=== PATIENT | male | born 1935 | race Caucasian/White ===

== ENCOUNTER 2019-12-17 19:08 | Emergency (ER) | payer MEDICARE, OTHER ==
[~2019-12-17] VITALS: Ht 177.8 cm; Wt 79.5 kg
[2019-12-17 19:15] VITALS: Ht 177.8 cm; Wt 79.5 kg
[2019-12-17 20:05] LABS: HEMATOCRIT 51.8 % (42.0-54.0); HEMOGLOBIN 17.1 g/dL (13.5-17.5); LYMPHOCYTES 20.5 % (15-50); MCH 29.9 pg (26.0-34.0); MCV 90.7 fL (80.0-100.0); MEAN PLATELET VOLUME 9.1 fL (7.4-10.4); NEUTROPHILS 71.4 % (40-80); PLATELET COUNT 202 10x3/uL (130-400); RBC 5.71 10x6/uL (4.20-6.10); WBC 10.4 10x3/uL (4.8-10.8)
[2019-12-17 20:11] LABS: INR 2.79 (0.85-1.17); PROTIME 28.9 SECONDS (11.6-15.0)
[2019-12-17 20:13] LABS: CALC OSMOLALITY 267 mosm/kg (275-300); CALCIUM 9.7 mg/dL (8.5-10.1); CARBON DIOXIDE 34.6 mmol/L (21.0-32.0); CHLORIDE - SERUM 95 mmol/L (98-107); CREATININE - SERUM 1.4 mg/dL (0.6-1.3); GLUCOSE 96 mg/dL (74-106); POTASSIUM - SERUM 3.9 mmol/L (3.5-5.1); SODIUM 133 mmol/L (136-145); UREA NITROGEN 19 mg/dL (7-18); eGFR NON AFRICAN AMERICAN 51 mL/min (90-120)
[2019-12-17 20:27] LABS: ALBUMIN 4.4 g/dL (3.4-5.0); ALKALINE PHOSPHATASE 81 U/L (30-120); ALT (SGPT) 28 U/L (10-68); BILIRUBIN - TOTAL 2.67 mg/dL (0.2-1.3); CREATINE KINASE 177 UL (21-232); PRO BNP 2665 pg/mL (0-450); PROTEIN - SERUM 7.7 g/dL (6.4-8.2); THYROID STIMULATING HORMONE 5.62 uIU/mL (0.36-3.74)
[2019-12-17 20:28] LABS: TROPONIN-I < 0.017 ng/mL (0.000-0.060)
[2019-12-17 20:51] VITALS: BP 110/79
== END 2019-12-17 20:51 | disposition home or self-care (01) ==
LOC: D.ER 19:08
PROVIDERS: Family Medicine
DX: S01.01XA Laceration without foreign body of scalp, initial encounter (principal); N28.9 Disorder of kidney and ureter, unspecified; W19.XXXA Unspecified fall, initial encounter; Y93.9 Activity, unspecified; Y92.9 Unspecified place or not applicable; M25.552 Pain in left hip